=== PATIENT | female | born 1975 | race Caucasian/White ===

== ENCOUNTER 2021-01-21 08:12 | Emergency (ER) | payer OTHER, SELFPAY ==
--- NOTE | ~2021-01-21 | CT_ITS ---
EXAMINATION: CT abdomen pelvis wo con DATE: 01/21/2021 10:02 INDICATION: Kidney stone. Left flank pain. TECHNIQUE: Computed tomography (CT) of the abdomen and pelvis was performed without intravenous contr ast. Automated exposure control and iterative reconstruction technique were employed. The dose-length product was 1076.39 mGy-cm. COMPARISON: CT abdomen dated 01/08/2005 FINDINGS: Lung bases are clear. Heart size is normal. Mild atherosclerotic coronary artery calcification. No pe ricardial or pleural effusion. Liver, gallbladder, spleen, pancreas and bilateral adrenal glands are normal. There are 1-2 mm nonobstructing stones at upper pole calyx of the left kidney and lower pole calyx of the right kidney. There are few calcifications in the pelvis, the majority phleboliths altho ugh one 2 mm calcification is seen at the distalmost left ureter suspicious for a nonobstructing catalina l stone. No hydroureteronephrosis. There are couple diverticula at the proximal sigmoid colon without adjacent inflammatory change to suggest diverticulitis. Small bowel and appendix are normal. Small f at-containing umbilical hernia. The uterus is not identified and has likely been surgically resected. Bladder and bilateral adnexa are unremarkable. No free intraperitoneal gas or fluid. No pathological ly enlarged abdominal or pelvic lymphadenopathy. Chronic minimal anterior wedging at T11-L2. IMPRESSION: 1. Bilateral nonobstructing nephrolithiasis with possible 2 mm nonobstructing stone versus a phleboli th along the distalmost left ureter without left hydroureteronephrosis. Reviewed, dictated and finalized at location A. IMPRESSION: 1. Bilateral nonobstructing nephrolithiasis with possible 2 mm nonobstructing s tone versus a phlebolith along the distalmost left ureter without left hydroure teronephrosis.
[2021-01-21 08:24] VITALS: BP 117/79; PULSE 83; RESP 14; TEMP 36.3; O2SAT 99
[2021-01-21 08:35] LABS: Basophils Absolute Auto 0.1 K/mm3 (0.0-0.1); Basophils Percent Auto 0.6 % (0.2-1.2); Eosinophils Absolute Auto 0.1 K/mm3 (0-0.3); Eosinophils Percent Auto 1.2 % (0-4.4); Hematocrit 41.4 % (37.0-47.0); Hemoglobin 14.2 g/dL (12.0-15.0); Immature Granulocyte Absolute 0.03 K/mm3 (0.00-0.031); Immature Granulocyte Percent A 0.4 % (0-0.5); Lymphocytes Absolute Auto 1.72 K/mm3 (0.9-3.2); Lymphocytes Percent Auto 20.4 % (18.3-44.2); Mean Corpuscular HGB Conc 34.3 g/dl (32-36); Mean Corpuscular Hemoglobin 30.5 pg (26-34); Mean Corpuscular Volume 88.8 fl (80-100); Mean Platelet Volume 10.7 fl (7.4-10.4); Monocytes Absolute Auto 0.7 K/mm3 (0.1-0.6); Monocytes Percent Auto 8.5 % (2.6-8.5); Neutrophils Absolute Auto 5.8 K/mm3 (1.3-6.7); Neutrophils Percent Auto 68.9 % (45.5-73.1); Platelet Count Result 263 k/mm3 (150-375); Red Blood Count 4.66 M/mm3 (4.2-5.4); White Blood Count 8.5 K/mm3 (4.5-10.0)
[2021-01-21 08:44] LABS: Anion Gap 7 mmol/L (8-16); Blood Urea Nitrogen 9 mg/dL (7-17); Calcium 8.9 mg/dL (8.4-10.2); Carbon Dioxide 27 mmol/L (22-30); Chloride 106 mmol/L (98-107); Estimated CRCL calculation 126 ml/min; Estimated Glomerular Filt Rate > 60; Glucose 103 mg/dL (65-110); Potassium 3.5 mmol/L (3.4-5.0); Sodium 140 mmol/L (137-145)
[2021-01-21 08:45] LABS: Add Urine Microscopic? YES; Appearance Urine Cloudy (Clear); Bacteria Urine 2+ /hpf; Bilirubin Urine Negative (Negative); Blood Urine 3+ (Negative); Color Urine Amber (Yellow); Glucose Urine UA Negative (Negative); Ketones Urine Negative (Negative); Leukocyte Esterase Ur Negative LEU/UL (Negative); Mucus Urine Heavy /lpf; Nitrate Urine Negative (Negative); Protein Urine 1+ mg/dL (Negative); RBC Urine >75 /hpf (0-2); Squamous Epithelial Cell Urine Many /hpf (Few); Urobilinogen Urine Negative mg/dL (<2.0)
[2021-01-21 09:25] VITALS: BP 110/75; PULSE 70; RESP 12; O2SAT 98
[2021-01-21] MEDS: ONDANSETRON INJ 4 MG/2 ML VIAL IV PUSH (09:41)
[2021-01-21] MEDS: MORPHINE SULFATE (*CRX) 4 MG/ML INJ IV PUSH (09:41)
[2021-01-21] MEDS: SODIUM CHLORIDE 0.9% IV 1,000 ML 999 ML IV CONT (09:41)
[2021-01-21] MEDS: KETOROLAC 30 MG/ML VIAL (*BKC) IV PUSH (11:00)
--- NOTE | 2021-01-21 11:04 | ED.GENADULT ---
HPI - General Adult General Chief complaint: Back Pain/Injury Stated complaint: L FLANK PAIN, HX STONES Time Seen by Provider: 01/21/21 09:09 Source: patient and RN notes reviewed Mode of arrival: ambulatory Limitations: no limitations History of Present Illness HPI narrative: Patient is a 45-year-old female who presents to emergency department for evaluation of left flank pain that began acutely this morning is a sharp stabbing pain patient notes that the pain is moderate to severe in nature. Patient notes history of kidney stone. Patient has not taken anything for symptoms. Patient notes nausea. Pain is remained constant Related Data Allergies Allergy/AdvReac Type Severity Reaction Status Date / Time No Known Allergies Allergy Unknown Unverified 07/05/10 07:25 Review of Systems Review of Systems: All systems reviewed & are unremarkable except as noted in HPI and below PMFSH Past Medical History Medical History (Updated 01/21/21 @ 11:09 by Tono Perez PA-C) Urolithiasis Social History Social History (Updated 01/21/21 @ 11:06 by Tono Perez PA-C) Smoking status: Never smoker Exam Narrative: Exam Narrative: GENERAL: Well-appearing, well-nourished, uncomfortable and in no acute distress. HEAD: Normocephalic, atraumatic. EYES: PERRLA and EOMI. ENT: Nares clear, no rhinorrhea or epistaxis. Mucous membranes moist. NECK: Supple. No adenopathy or masses. No carotid bruits or JVD CHEST: Clear to auscultation. No respiratory distress. No wheezes rales or rhonchi HEART: Regular rate and rhythm. No murmur heard. Normal peripheral pulses. ABDOMEN: Soft, nontender, nondistended EXTREMITIES: Normal range of motion. No edema. SKIN: Warm, dry, no rash. NEURO: No focal deficits. Alert and oriented x3. PSYCH: Normal mood and affect. Course Course Emergency Course: Patient evaluated the emergency department pain well controlled will be discharged home with diagnosis of urolithiasis provided with reasons to return felt appropriate for outpatient reevaluation hydrated medicated in the emergency department Vital Signs Vital signs: Vital Signs Temperature 97.4 F L 01/21/21 08:24 Pulse Rate 83 01/21/21 08:24 Respiratory Rate 14 01/21/21 08:24 Blood Pressure 117/79 01/21/21 08:24 Pulse Oximetry 99 07/21/21 08:24 Temperature 97.4 F L 01/21/21 08:24 Pulse Rate 70 01/21/21 09:25 Respiratory Rate 12 01/21/21 09:25 Blood Pressure 110/75 01/21/21 09:25 Pulse Oximetry 98 01/21/21 09:25 Medical Decision Making MDM Narrative Medical decision making narrative: ABCs and vital signs intact and stable afebrile nontoxic-appearing without emesis felt appropriate for outpatient reevaluation Vital Signs Vital Signs: Vital Signs Temperature 97.4 F L 01/21/21 08:24 Pulse Rate 83 01/21/21 08:24 Respiratory Rate 14 01/21/21 08:24 Blood Pressure 117/79 01/21/21 08:24 Pulse Oximetry 99 01/21/21 08:24 Temperature 97.4 F L 01/21/21 08:24 Pulse Rate 70 01/21/21 09:25 Respiratory Rate 12 01/21/21 09:25 Blood Pressure 110/75 01/21/21 09:25 Pulse Oximetry 98 01/21/21 09:25 Lab Data Result diagrams: 01/21/21 08:27 01/21/21 08:26 Labs: Lab Results 01/21/21 01/21/21 01/21/21 Range/Units 08:26 08:27 08:27 WBC 8.5 (4.5-10.0) K/mm3 RBC 4.66 (4.2-5.4) M/mm3 Hgb 14.2 (12.0-15.0) g/dL Hct 41.4 (37.0-47.0) % MCV 88.8 (80-100) fl MCH 30.5 (26-34) pg MCHC 34.3 (32-36) g/dl RDW 13.0 (11.5-14.5) % Plt Count 263 (150-375) k/mm3 MPV 10.7 H (7.4-10.4) fl Immature Gran % (Auto) 0.4 (0-0.5) % Neut % (Auto) 68.9 (45.5-73.1) % Lymph % (Auto) 20.4 (18.3-44.2) % Butts % (Auto) 8.5 (2.6-8.5) % Eos % (Auto) 1.2 (0-4.4) % Baso % (Auto) 0.6 (0.2-1.2) % Lymph # (Auto) 1.72 (0.9-3.2) K/mm3 Butts # (Auto) 0.7 H (0.1-0.6) K/mm3 Eos # (Auto) 0.1 (0-0.3)
[2021-01-21 11:19] VITALS: BP 113/74; PULSE 80; RESP 12; O2SAT 98
[2021-01-21 11:42] VITALS: BP 107/70; PULSE 62; RESP 15; O2SAT 100
== END 2021-01-21 11:43 | disposition home or self-care (01) ==
PROVIDERS: Emergency Provider Emergency Medicine; PCP Family Medicine
DX: N20.9 Urinary calculus, unspecified (principal)
CPT/HCPCS: 36415; 74176; 80048; 81001; 85025; 87086; 87088; 96361; 96374; 96375; 99284; J0131; J1885; J2270; J2405; J7030